=== PATIENT | male | born 1995 | race Caucasian/White ===

== ENCOUNTER 2019-04-09 09:04 | Emergency (ER) | payer OTHER ==
[~2019-04-09] VITALS: Ht 182.9 cm; Wt 71.9 kg
[2019-04-09 09:26] VITALS: BP 151/88
[2019-04-09] MEDS ORDERED: tetanus & diphtheria toxoid (Td) vaccine 0.5ml IMVAC ONE (09:30)
[2019-04-09] MEDS ORDERED: acetaminophen w/codeine (30MG) #3 tablet PO ONE (09:30)
[2019-04-09] MEDS ORDERED: ibuprofen tablet 400 MG TABLET PO ONE (09:30)
[2019-04-09] MEDS ORDERED: TETanus/Pertussis (Acell)/Diphther VAC/PF (Tdap-Adult) 0.5ml syringe IMVAC ONE (09:35)
[2019-04-09] MEDS ORDERED: ibuprofen 200mg tablet PO ONE (09:35)
[2019-04-09] MEDS ORDERED: IBUP-1984 PO (09:56)
[2019-04-09] MEDS ORDERED: LIDOcaine 1% W/epiNEPHrine 1:200,000 10ml vial IJ STA (10:05)
== END 2019-04-09 10:29 | disposition home or self-care (01) ==
LOC: ER 09:05
DX: S81.812A Laceration without foreign body, left lower leg, initial encounter (principal); S50.312A Abrasion of left elbow, initial encounter; S70.212A Abrasion, left hip, initial encounter; V86.56XA Driver of dirt bike or motor/cross bike injured in nontraffic accident, initial encounter; Y93.55 Activity, bike riding; Y92.413 State road as the place of occurrence of the external cause; Y99.9 Unspecified external cause status
CPT/HCPCS: 12001; 73564; 73590; 90471; 99283